=== PATIENT | male | born 1965 | race Caucasian/White ===

== ENCOUNTER → 2019-02-13 | Outpatient (CLI) | payer BC ==
--- NOTE | 2019-02-13 16:49 | PCVCIMAG ---
APPROVED REPORT Study performed: 02/13/2019 15:46:28 Exam: Stress Echocardiogram Indication: Chest pain Patient Location: Echo lab Stress Nurse: Digna Rosales RN Room #: 2 Status: routine Ht: 5 ft 10 in HR: 71 bpm BP: 136/92 mmHg Rhythm: NSR Medical History Medical History: HTN Cardiac Risk Factors: HTN, Tobacco History (Current/Recent) Previous Cardiac Procedures: none Pretest Chest Pain Characteristics: No chest pain Exercise History: Physically active Procedure The patient underwent an Exercise Stress Test using the Dillon Protocol. Blood pressure, heart rate, and EKG were monitored. An Echocardiogram was performed by textile science technician in four stages in quad fashion. At peak stress, four selected images were obtained and placed side by side with resting images for comparison. Stress Test Details Stress Test: Exercise stress testing was performed using a Dillon protocol. HR Resting HR: 71 bpmMax Heart Rate (APMHR): 164 bpm Max HR Achieved: 179 bpmTarget HR (85% APMHR): 139 bpm % of APMHR: 109 Recovery HR: 121 bpm HR response to stress: Normal HR response to stress BP Resting BP: 136/92 mmHg Max BP: 180/90 mmHg Recovery BP: 142/86 mmHg BP response to stress: Normal blood pressure response to stress. ECG Resting ECG: Sinus Rhythm Stress ECG: Sinus Rhythm ST Change: Non-ischemic Maximum ST Deviation: 0 mm Arrhythmia: Occ PVC Recovery ECG: Sinus Rhythm Recovery ST Change: Non-ischemic Recovery ST Deviation: 0 mm Recovery Arrhythmia: rare PVCs Clinical Reason for Termination: Maximal effort Stress Symptoms: none Exercise duration: 12 min 01 sec Highest Stage Achieved: Stage 4: 4.2 mph at 16% grade. Exercise capacity: 13.7 METs Overall Exercise Capacity for Age: Good Scale: Active Angina Score: None No complications. Stress ECG Conclusion The patient exercised according to the DILLON protocol for 12:01 mins; achieving a work level of 13.7 METS. The resting heart rate of 71 bpm alicja to a maximum heart rate of179 bpm. This value represents 109 % of the maximal, age-predicted heart rate. The resting blood pressure of 136/92 mmHg, alicja to a maximum blood pressure of 180/90mmHg. The exercise test was stopped due to fatigue . Scott Treadmill Score is 12.0 which is Low risk. Pre-Stress Echo The resting Echocardiogram showed normal left ventricular contractility with an estimated Ejection Fraction of about 55-60%. Normal wall motion in all segments on baseline images. Post-Stress Echo The stress Echocardiogram showed normal left ventricular contractility with an estimated Ejection Fraction of about 65-70%. Normal augmentation of wall motion in all segments on post stress images. Clinical No clinical or ECG evidence for ischemia. Conclusion Clinical Response: Non-ischemic Exercise Capacity: Superior Stress ECG Response: Non-ischemic Stress Echo Images: Non-ischemic No clinical, EKG or echocardiographic evidence for ischemia. No echocardiographic evidence for exercise induced ischemia. Normal stress echocardiogram with maximal exercise stress. Normal color doppler. No regurgitation or stenosis present on pulmonic, mitral, tricuspid or aortic valves. No prior study available for comparison. <Conclusion> No clinical, EKG or echocardiographic evidence for ischemia. No echocardiographic evidence for exercise induced ischemia. Normal stress echocardiogram with maximal exercise stress. Normal color doppler. No regurgitation or stenosis present on pulmonic, mitral, tricuspid or aortic valves.
== END | disposition home or self-care (01) ==
LOC: PCVCIMAG 15:26
PROVIDERS: ATTEND Internal Medicine
DX: R07.9 Chest pain, unspecified (principal); I10 Essential (primary) hypertension; Z72.0 Tobacco use
CPT/HCPCS: 93325; 93351